=== PATIENT | male | born 1960 | race Caucasian/White ===

== ENCOUNTER 2018-11-25 14:56 | Emergency (ER) | payer OTHER ==
[~2018-11-25] VITALS: Ht 182.9 cm; Wt 106.6 kg
[2018-11-25] MEDS ORDERED: CELEXA 10 MG TA10 M1 PO (15:09)
[2018-11-25] MEDS ORDERED: AMBIEN 5 MG TABL5 M1 PO (15:09)
[2018-11-25] MEDS ORDERED: WELLBUTRIN 100100 MG PO (15:09)
[2018-11-25] MEDS ORDERED: XANAX 0.25 MG0.25 MG PO (15:10)
[2018-11-25 15:47] LABS: ABSOLUTE EOSINOPHILS 0.4 thou/uL (0.0-0.7); ABSOLUTE LYMPHOCYTES 2.4 thou/uL (0.8-5.3); ABSOLUTE MONOCYTES 0.8 thou/uL (0.0-1.2); ABSOLUTE NEUTROPHILS 4.7 thou/uL (1.6-8.1); BASOPHILS 0.5 %; EOSINOPHILS 4.8 %; HEMATOCRIT 40.6 % (42.0-52.0); HEMOGLOBIN 13.9 gm/dL (14.0-18.0); LYMPHOCYTES 28.5 %; MCH 31.3 pg (26.0-34.0); MCHC 34.3 g/dL (28.0-37.0); MCV 91.1 fL (80.0-100.0); MONOCYTES 9.4 %; MPV 7.5 fl. (7.2-11.1); NUCLEATED RBCS 0 /100WBC; PLATELET COUNT* 317 thou/uL (150-400); POLYS 56.8 %; RBC 4.45 mil/uL (4.50-6.00); RDW-CV 13.2 % (10.5-14.5); WBC 8.3 thou/uL (4.0-11.0)
[2018-11-25 15:57] LABS: ALBUMIN 4.1 g/dL (3.4-5.0); CALCIUM 8.9 mg/dL (8.5-10.1); CREATININE 1.4 mg/dL (0.6-1.3); POTASSIUM 3.9 mmol/L (3.5-5.1); TOTAL BILIRUBIN 0.4 mg/dL (<0.1-1.0); TOTAL PROTEIN 7.5 g/dL (6.4-8.2)
[2018-11-25 15:59] LABS: PROTIME 10.3 Seconds (9.20-11.50)
[2018-11-25] MEDS ORDERED: LIPITOR 20 MG T20 M1 PO (17:42)
[2018-11-25 17:50] VITALS: BP 119/81
--- NOTE | 2018-11-26 14:15 | EKG ---
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
--- NOTE | 2018-11-26 14:17 | EKG ---
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: : 1960 Requested By: Carli Campos Order Number: [id number] MD: Tad Isidro Measurements Intervals [place] Rate: 85 P: 201 ND: 181 QRS: 77 QRSD: 107 T: -6 QT: 391 QTc: 465 Interpretive Statements Sinus or ectopic atrial rhythm Sinus pause Borderline T abnormalities, inferior leads Baseline wander in lead(s) V1 No previous ECG available for comparison Electronically Signed On 11-26-2018 14:16:54 CDT by Tad Isidro [email or web address] <ELECTRONICALLY SIGNED> By: Tad Isidro MD, [facility] 11/26/18 1416 D: [id number] Tad Isidro MD, FACC /EPI
== END 2018-11-25 17:50 | disposition home or self-care (01) ==
LOC: M.ERS 14:56
PROVIDERS: Personal Emergency Response Attendant
DX: F41.9 Anxiety disorder, unspecified (principal); R07.89 Other chest pain; F32.9 Major depressive disorder, single episode, unspecified; K21.9 Gastro-esophageal reflux disease without esophagitis